=== PATIENT | female | born 1950 | race Caucasian/White ===

== ENCOUNTER 2017-04-20 14:28 | Emergency (ER) | payer BC ==
[~2017-04-20] VITALS: Ht 152.4 cm; Wt 84.0 kg
[~2017-04-20 14:28] MED LIST: ACET-1487 PO; ADVIN25/60 INH; FISHOIL PO; LORA10CA2 PO; MXZUNK
[2017-04-20 14:31] VITALS: TEMP 36.6; Ht 152.4 cm; Wt 84.0 kg
[2017-04-20] MEDS ORDERED: XYLOCAINE 1%/SOD BICARB 20 ML VIAL INFIL ONE (15:00)
--- NOTE | 2017-04-20 15:43 | DIAGNOSTIC IMAGING REPORT ---
HEAD WITHOUT CONTRAST (CT) CLINICAL HISTORY: 67 years-old Female with FALL, HIT FOREHEAD, LACERATION. Acute head injury status post fall. TECHNIQUE: Multiple axial CT images of the head were obtained without contrast. A dose lowering technique was utilized adhering to the principles of ALARA. CT DOSE: 537.48 mGy.cm COMPARISON: None. FINDINGS: No acute intracranial hemorrhage, midline shift, mass, large territorial ischemia or abnormal extra-axial collection. The calvarium is intact. The paranasal sinuses, mastoid air cells, and middle ear cavities are clear. There is mild soft tissue swelling of the prefrontal tissues. IMPRESSION: 1. No acute intracranial abnormality. No hemorrhage or calvarial fracture. 2. Mild prefrontal soft tissue swelling, likely posttraumatic. The above report was generated using voice recognition software. It may contain grammatical, syntax or spelling errors. Electronically signed by: Tc Arzola M.D. 04/20/2017 3:41 PM Dictated Date/Time: 04/20/2017 3:40 PM
[2017-04-20] MEDS ORDERED: DULO60CA44 PO (15:57)
[2017-04-20] MEDS ORDERED: TRAM-10 PO (15:57)
[2017-04-20] MEDS ORDERED: ATOR10TA88 PO (15:57)
[2017-04-20] MEDS ORDERED: HYDR12.55 PO (15:57)
--- NOTE | 2017-04-20 16:29 | EMERGENCY ROOM VISIT NOTE ---
ED Visit Note First contact with patient: 14:35 CHIEF COMPLAINT: Fall, forehead laceration 30 minutes ago HISTORY OF PRESENT ILLNESS: Patient is a 67-year-old white female who presents to the emergency department today by her for evaluation of a right forehead laceration. She sustained a mechanical fall about 30 minutes ago while she was walking with her dog. The dog chased after squirrel, and pulled her causing her to lose her balance and fall. She struck the forehead on the sidewalk. There was bleeding from the laceration, which has been controlled with pressure. She did not lose consciousness. She notes a stinging pain at the site of the laceration, denies any generalized headache, no lightheadedness , dizziness, nausea, vomiting or vision changes. She denies any neck pain. She did not strike anywhere else on her face, denies any other injuries including to her arms or knees. No back pain. She does not use any NSAIDs, aspirin or ibuprofen products secondary to allergy. REVIEW OF SYSTEMS: Review of systems as per HPI. All other systems reviewed were negative. 10 systems reviewed. PMH: Electronic medical records are reviewed and summarized as above/below. See Problem List. Her tetanus is up-to-date. SOCIAL HISTORY: Patient lives at home with her outside [place]. They have a cabin here locally and are here for the weekend. She does not smoke. PHYSICAL EXAM: Vital Signs: Reviewed Nurse's notes. CONSTITUTIONAL: Patient is a pleasant, well-appearing 67-year-old white female who is awake and alert and in no acute distress GCS: 15 HEENT: Right prefrontal soft tissue swelling, abrasion with a 1.5 cm linear laceration. Pupils equal, round, reactive to light and accommodation. EOMs intact without nystagmus. Sclera are anicteric. Tympanic membranes intact, with normal landmarks. External canals are clear. No hemotympanum or Flowers sign. Oral and nasopharynx are clear. No CSF rhinorrhea. Mucous membranes are moist. NECK: Supple, nontender, no lymphadenopathy. Full range of motion. HEART: Regular rate and rhythm, with normal S1 and S2, no murmur or gallop or rub is heard. LUNGS: Breath sounds equal and clear to auscultation without wheezes, rales, or rhonchi heard. SKIN: No lesions or rash, normal skin turgor. EXTREMITIES: No cyanosis, edema, joint tenderness or swelling. No deformity. NEUROLOGICAL: Alert and oriented x4. Cranial nerves 2 through 12, sensation and strength grossly intact. Gait is normal. Mini-Mental status exam is unremarkable. EMERGENCY DEPARTMENT COURSE: Head CT was obtained and was negative for acute intracranial abnormality. The wound was cleaned with saline and chlorhexidine. Sterile technique was used and the wound was anesthetized with 1% lidocaine. The wound edges were then approximated with 5 interrupted 6-0 nylon sutures. Bacitracin was applied as a dressing. Verbal and written head injury instructions were outlined. The patient's fall was mechanical in nature, not consistent with arrhythmia, syncope or seizure. She does not have any evidence of skull fracture or acute intracranial bleed. I do not suspect concussion. Medication reconciliation: I attest that I have personally reviewed the patient' s current medication list. Blood pressure screening: Patient was found to have a slightly elevated blood pressure due to circumstances. I do not believe that the patient requires hypertension monitoring. HEAD WITHOUT CONTRAST (CT) CLINICAL HISTORY: 67 years-old Female with FALL, HIT FOREHEAD, LACERATION. Acute head injury status post fall. TECHNIQUE: Multiple axial CT images of the head were obtained without contrast. A dose lowering technique was utilized adhering to the principles of ALARA. CT DOSE: 537.48 mGy.cm COMPARISON: None. FINDINGS: No acute intracranial hemorrhage, midline shift, mass, large territorial ischemia or abnormal extra-axial collection. The calvarium is intact. The paranasal sinuses, mastoid air cells, and middle ear cavities are clear. There is mild soft tissue swelling of the prefrontal tissues. IMPRESSION: 1. No acute intracranial abnormality. No hemorrhage or calvarial fracture. 2. Mild prefrontal soft tissue swelling, likely posttraumatic. Problem List Medical Problems: (1) Hypertension Nos Status: Chronic (2) Osteoarthritis Status: Chronic Surgical Problems: (1) History of knee surgery Status: Resolved Current/Historical Medications Scheduled Atorvastatin (Lipitor), Unknown Dose PO DAILY Duloxetine Hcl (Cymbalta), Unknown Dose PO DAILY Hydrochlorothiazide (Hydrochlorothiazide), Unknown Dose PO DAILY Scheduled PRN Tramadol (Ultram), 50 MG PO DAILY PRN for Pain Allergies Coded Allergies: Ibuprofen (Verified Allergy, angioedema, 06/19/12) NSAIDs (Verified Allergy, angioedema,resp. distress, 06/19/12) Vital Signs Date Time Temp Pulse Resp B/P (MAP) Pulse Ox O2 Delivery O2 Flow Rate FiO2 04/20/17 16:42 70 20 124/78 96 04/20/17 14:31 36.6 82 20 142/88 95 Room Air Departure Information Impression Primary Impression: Forehead laceration Additional Impressions: Head contusion Fall Patient Instructions My [facility] Additional Instructions Keep wound clean and dry. Cleanse gently with mild soap and water daily. Use an antibiotic ointment for 3-4 days, then let wound dry. Suture removal in 67 days. Return sooner for any signs of infection (increasing redness, swelling, drainage). Ice and elevate for swelling and pain. Tylenol 1000 mg every 6 hrs for pain. Problems could arise over the next 24 to 48 hours. You should not be left alone and MUST go to the hospital immediately if you: -Have a headache that suddenly gets worse. -Are very drowsy or cannot be woken up from sleep. -Can't recognize people or places. -Have repeated vomiting. -Behave unusually, seemed confused, or start acting irritable. -Have a seizure (arms and legs start jerking uncontrollably). -Have weak or numb arms or legs. -Are unsteady on your feet -Experience slurred speech or difficulty speaking. Problem Qualifiers
[2017-04-20 16:42] VITALS: BP 124/78; PULSE 70; O2SAT 96
== END 2017-04-20 16:45 | disposition home or self-care (01) ==
LOC: C.EDB 14:28 → C.EDD 16:45
DX: S01.81XA Laceration without foreign body of other part of head, initial encounter (principal); S00.83XA Contusion of other part of head, initial encounter; W19.XXXA Unspecified fall, initial encounter; I10 Essential (primary) hypertension; M19.90 Unspecified osteoarthritis, unspecified site; Z79.899 Other long term (current) drug therapy; Z96.659 Presence of unspecified artificial knee joint; Z88.6 Allergy status to analgesic agent; Z88.8 Allergy status to other drugs, medicaments and biological substances